=== PATIENT | male | born 1975 | race Caucasian/White ===

== ENCOUNTER 2019-04-03 10:39 | Emergency (ER) | payer OTHER, BC ==
[2019-04-03] MEDS ORDERED: IBUPROFEN 800 MG TABLET PO ONE (10:48)
--- NOTE | 2019-04-03 10:55 | ER Document Report ---
HPI - HPI Time Seen by Provider: 04/03/19 10:46 Pain Level: 4 Notes: Otherwise healthy 44-year-old male presents the emergency department chief complaint of right arm injury. Patient reports this morning he was lifting something heavy at work when he felt a snap and states that he thinks he ruptured a tendon or something because now he has a lump in his biceps area. He arrives with his arm in a sling. - MUSCULOSKELETAL Musculoskeletal: REPORTS: Extremity pain Past Medical History - General Information source: Patient - Social History Smoking Status: Never Smoker Chew tobacco use (# tins/day): No Frequency of alcohol use: None Drug Abuse: None Family History: Reviewed & Not Pertinent Patient has suicidal ideation: No Patient has homicidal ideation: No - Medical History Medical History: Negative Surgical Hx: Negative - Immunizations Immunizations up to date: Yes Vertical Provider Document - CONSTITUTIONAL Notes: PHYSICAL EXAMINATION: GENERAL: Well-appearing, well-nourished and in no acute distress. HEAD: Atraumatic, normocephalic. EYES: Pupils equal round extraocular movements intact, conjunctiva are normal. ENT: Nares patent NECK: Normal range of motion LUNGS: No respiratory distress Musculoskeletal: Limited strength to right arm, large bulge noted in upper arm near the bicep area, consistent with possible biceps tendon rupture. Cap refill less than 3 seconds, strong radial pulse. NEUROLOGICAL: Normal speech, normal gait. PSYCH: Normal mood, normal affect. SKIN: Warm, Dry, normal turgor, no rashes or lesions noted. Course - Re-evaluation Re-evalutation: X-rays were negative for any acute osseous injury. Likely biceps tendon rupture. Patient will be referred out to orthopedics. He has already arrived in a sling. Pain medication will be provided. Patient given ED return precautions, he verbalizes understanding and agreement with same. - Vital Signs Vital signs: Temp Pulse Resp BP Pulse Ox 98.2 F 91 18 120/83 98 04/03/19 10:45 04/03/19 10:45 04/03/19 10:45 04/03/19 10:45 04/03/19 10:45 Discharge - Discharge Clinical Impression: Upper extremity injury Qualifiers: Encounter type: initial encounter Laterality: right Qualified Code(s): S49.91XA - Unspecified injury of right shoulder and upper arm, initial encounter Condition: Stable Disposition: HOME, SELF-CARE Additional Instructions: You are seen in the emergency department with concern for a possible right biceps tendon injury. I do feel it is likely that you have a rupture or partial tear of the biceps tendon. You will need to follow-up with orthopedics. Please call them Friday morning let them know you were seen in the emergency department and they will get you an appointment. Please take ibuprofen 600 mg every 6 hours for pain and inflammation. Use the [place] for severe pain only. Continue using the sling. Prescriptions: Hydrocodone/Acetaminophen [[place] 5-325 mg Tablet] 1 tab PO Q4H #10 tablet Forms: Return to Work Referrals: HOLDEN HERNANDEZ, [ACTIVE STAFF] - Follow up as needed CHRISTOPHER OATES JR, DO [ACTIVE PROVISIONAL STAFF] - Follow up as needed
--- NOTE | 2019-04-03 12:17 | RADIOLOGY REPORT (SQ) ---
EXAM DESCRIPTION: HUMERUS RIGHT COMPLETED DATE/TIME: 04/03/2019 11:31 am REASON FOR STUDY: eval for fx vs biceps tendon rupture . Lifting heavy equipment, pain at the post erior elbow area. COMPARISON: None. NUMBER OF VIEWS: Two views. TECHNIQUE: Two radiographic images were acquired of the right humerus to include elbow and shoulder in at least one projection. LIMITATIONS: None. FINDINGS: MINERALIZATION: Normal. BONES: No acute fracture or dislocation. Mild degenerative changes at the acromioclavicular joint. SOFT TISSUES: No obvious swelling or radiopaque foreign body. IMPRESSION: No radiographic evidence for acute osseous abnormality at the right humerus. TECHNICAL DOCUMENTATION: JOB ID: [id number] [employer]- All Rights Reserved Reading location - IP/workstation name: [email or web address]
[2019-04-03 12:28] VITALS: BP 115/75
[2019-04-03] MEDS ORDERED: HYDROCODONE/ACETAMINOPHEN 5-325 MG TABLET PO ONE (12:58)
== END 2019-04-03 13:04 | disposition home or self-care (01) ==
LOC: ER 10:39
DX: S49.91XA Unspecified injury of right shoulder and upper arm, initial encounter (principal); X50.0XXA Overexertion from strenuous movement or load, initial encounter
CPT/HCPCS: 99283